=== PATIENT | male | born 1955 | race Caucasian/White ===

== ENCOUNTER 2020-03-16 14:24 | Emergency (ER) | payer OTHER ==
[~2020-03-16] VITALS: Ht 185.4 cm; Wt 108.1 kg
[~2020-03-16 14:24] MED LIST: ATOR40TA PO; CARV3.122 PO; FURO40TA6 PO; GABA-826 PO; GLIP5TAB10 PO; HYDR-3237 PO; LISI5TAB7 PO; METF10007 PO; POTA10TA5 PO; SPIR25TA PO; WARF-36 PO; WARF7.5T46 PO; [UNRECOGNIZED DRUG - OTHER] PO
[2020-03-16 15:00] LABS: BASOPHILS % (AUTO) 2 % (0-1); EOSINOPHILS % (AUTO) 4 % (1-7); LYMPHOCYTES % (AUTO) 35 % (22-44); MEAN CORPUSCULAR HEMOGLOBIN 32.6 pg (27.5-34.5); MEAN PLATELET VOLUME 8.2 fL (7.4-10.4); MONOCYTES % (AUTO) 13 % (2-9); NEUTROPHILS % (AUTO) 47 % (42-75); PLATELET COUNT 184 x10^3/uL (130-400); RED BLOOD COUNT 4.81 x10^6/uL (4.38-5.82); RED CELL DISTRIBUTION WIDTH 15.3 % (9.4-14.8)
[2020-03-16] MEDS ORDERED: SODIUM CHLORIDE FLUSH 10ML SYR IVF ONE (15:00)
[2020-03-16 15:09] LABS: ALANINE AMINOTRANSFERASE 12 U/L (12-78); ALBUMIN 2.9 g/dL (3.4-5.0); ANION GAP 6 mmol/L (5-15); CALCIUM 8.6 mg/dL (8.5-10.1); CHLORIDE 105 mmol/L (98-107); CREATININE 1.08 mg/dL (0.7-1.3)
[2020-03-16 15:13] LABS: ALKALINE PHOSPHATASE 138 U/L (45-117); BILIRUBIN,TOTAL 1.5 mg/dL (0.2-1.0); TOTAL PROTEIN 7.9 g/dL (6.4-8.2); TROPONIN I < 0.015 ng/mL (0.000-0.045)
[2020-03-16 15:14] LABS: MD NO
--- NOTE | 2020-03-16 15:51 | NUR ---
emt/paramedic: Pt called from lobby to room.
[2020-03-16 16:25] LABS: INTERNATIONAL NORMALIZED RATIO 2.96 (0.93-1.1)
[2020-03-16] MEDS ORDERED: AMPICILLIN/SULBACTAM 3 GM in SODIUM CHLORIDE 0.9% 100 ML IV ONE (16:30)
[2020-03-16 16:42] VITALS: BP 110/83
[2020-03-16 17:13] LABS: MICROSCOPIC NOT IND
--- NOTE | 2020-03-16 17:25 | NUR ---
DICUSSED POSSIBLE ADMISSION PREVIOUSLY WITH PT D/T PT REQUIRING 3L NC TO MAINTAIN SATS >90%. PT REFUSING TO BE ADMITTED, STATES SMOKES AND WONT WEAR O2 BECAUSE "YOU CANT DO BOTH" PT NOW CALLING RN IN TO , STATES "I NEED TO TALK TO THAT DOCTOR ABOUT HOME OXYGEN USE, I WOULDNT WEAR IT WHILE IM SMOKING" WILL OBTAIN RA SAT, UPDATE ERMD
--- NOTE | 2020-03-16 18:05 | NUR ---
RA SAT 85-87% ERMD UPDATED. PT CONTINUES TO DECLINE ADMISSION WILL PROCEED WITH DC
== END 2020-03-16 18:44 | disposition home or self-care (01) ==
LOC: ED 15:24
DX: L03.314 Cellulitis of groin (principal); R60.0 Localized edema; J84.9 Interstitial pulmonary disease, unspecified; I50.9 Heart failure, unspecified; I49.3 Ventricular premature depolarization; I48.91 Unspecified atrial fibrillation; I25.2 Old myocardial infarction; I45.9 Conduction disorder, unspecified; R07.9 Chest pain, unspecified
CPT/HCPCS: 36415; 71045; 80053; 81003; 83690; 83880; 84484; 85025; 85610; 87040; 93005; 96365; 99285; J0295